=== PATIENT | male | born 1965 | race Caucasian/White ===

== ENCOUNTER 2022-11-30 05:34 | Outpatient (CLI) | payer OTHER ==
[~2022-11-30] VITALS: Ht 177.8 cm; Wt 84.1 kg
[2022-12-01] MEDS ORDERED: ASPI-999 PO (12:37)
[2022-12-01] MEDS ORDERED: METF-479 PO (12:38)
[2022-12-01] MEDS ORDERED: CARI1.5C PO (12:38)
[2022-12-01] MEDS ORDERED: GABA-486 PO (12:38)
[2022-12-01] MEDS ORDERED: OMEP10CA5 PO (12:38)
[2022-12-01] MEDS ORDERED: SEMA1PEN3 SQ (12:38)
== END 2022-12-01 12:44 | disposition home or self-care (01) ==
LOC: PREOP 05:34
PROVIDERS: ATTEND Podiatrist Foot & Ankle Surgery
DX: Z01.818 Encounter for other preprocedural examination (principal)

== ENCOUNTER 2022-12-07 07:50 | Day surgery (SDC) | payer OTHER ==
[~2022-12-07] VITALS: Ht 177.8 cm; Wt 84.1 kg
[~2022-12-07 07:50] MED LIST: ASPI-999 PO; CARI1.5C PO; GABA-486 PO; METF-479 PO; OMEP10CA5 PO; SEMA1PEN3 SQ
[2022-12-07] MEDS ORDERED: LACTATED RINGERS 1,000 ML IV PRN ×2 (08:00)
[2022-12-07] MEDS ORDERED: ceFAZolin INJECTION 1,000 MG in NS (IVPB) 50 ML IV ONE (08:00)
[2022-12-07] MEDS ORDERED: BUPIVACAINE 0.25% 30 ML (SENSORCAINE) VIAL ONE (08:03)
[2022-12-07] MEDS ORDERED: LIDOCAINE 1% INJ 20 ML VIAL ONE (08:03)
[2022-12-07 08:05] VITALS: BP 147/74
[2022-12-07] MEDS ORDERED: PROPOFOL INJECTION 50 ML IV ONE (08:56)
--- NOTE | 2022-12-07 09:20 | Progress Note-Pre Operative ---
Pre-Operative Progress Note Date of Available H&P: Dec 07, 2022 Date H&P Reviewed: Dec 07, 2022 Time H&P Reviewed: 09:10 Pre-Operative Diagnosis: Osteomyelitis, left 2nd toe RUTHY HUNT DPM Dec 07, 2022 09:20
[2022-12-07] MEDS ORDERED: LIDOCAINE 1% INJ 20 ML VIAL INJ ONE (09:39)
[2022-12-07] MEDS ORDERED: BUPIVACAINE 0.25% 30 ML (SENSORCAINE) VIAL INJ ONE (09:40)
[2022-12-07 10:03] VITALS: BP 148/79
--- NOTE | 2022-12-07 10:09 | Progress Note-Post Operative ---
Post-Operative Progess Note Surgeon (s)/Pin Sticker (s) Surgeon RUTHY HUNT DPM Pin Sticker: none Pre-Operative Diagnosis Osteomyelitis, left 2nd toe Post-Operative Diagnosis same Procedure & Operative Findings Date of Procedure 12/07/22 Procedure Performed/Findings Amputation of left 2nd toe Anesthesia Type MAC Estimated Blood Loss Estimated blood loss (mL): Minimal Specimens/Packing Specimens Removed Left 2nd toe RUTHY HUNT DPM Dec 07, 2022 10:09
[2022-12-07 10:10] VITALS: BP 166/78
[2022-12-07] MEDS ORDERED: ACHD5005 PO (10:11)
[2022-12-07] MEDS ORDERED: CEPH500C PO (10:11)
[2022-12-07] MEDS ORDERED: HYDROcodone/APAP 5 MG/325 MG (LORTAB) TAB PO PRN (10:15)
[2022-12-07] MEDS ORDERED: LACTATED RINGERS 1,000 ML IV SCH (10:15)
[2022-12-07 10:20] VITALS: BP 162/81
[2022-12-07 10:30] VITALS: BP_SYST 158; BP_SYST 166; BP_DIAS 85; BP_DIAS 97
[2022-12-07] MEDS ORDERED: fentaNYL INJ 100 MCG/2 ML AMP IVP ONE (10:30)
[2022-12-07] MEDS ORDERED: morphine INJ 10 MG/ML 1ML (SYR OR VIAL) IVP ONE (10:30)
[2022-12-07] MEDS ORDERED: ONDANSETRON 4 MG/2 ML (SDV) Z0FRAN IVP PRN (10:30)
--- NOTE | 2022-12-07 10:31 | Anesthesia-General Post-Op ---
MAC Patient Condition Mental Status/LOC: Same as Preop Cardiovascular: Satisfactory Nausea/Vomiting: Absent Respiratory: Satisfactory Pain: Controlled Complications: Absent Post Op Complications Complications None Follow Up Care/Instructions Patient Instructions None needed. Anesthesiology Discharge Order Discharge Order Patient is doing well, no complaints, stable vital signs, no apparent adverse anesthesia problems. No complications reported per nursing. ERMELINDA SANCHEZ CRNA Dec 07, 2022 10:31
[2022-12-07 11:00] VITALS: BP 170/85
--- NOTE | 2022-12-07 16:52 | Diagnostic Imaging Report ---
INDICATION: Postoperative evaluation. COMPARISON: None available. TECHNIQUE: Two radiographs of the left foot dated 12/07/2022. FINDINGS: Amputation of the second toe at the level of the base of the proximal phalanx is noted. Moderate hallux valgus metatarsus primus varus with bunion formation with moderate degenerative changes of the first MTP joint. No acute fracture or dislocation. No destructive osseous process. Small posterior and plantar calcaneal enthesophytes. No suspicious radiopaque foreign body. IMPRESSION: Postsurgical changes with demonstration of an amputation of the second toe at the level of the base of the second digit proximal phalanx. Moderate hallux valgus metatarsus primus varus with bunion formation and degenerative changes. Dictated by: Dictated on workstation # [id number]
--- NOTE | 2022-12-07 20:44 | OPERATIVE REPORT ---
DATE OF SERVICE: 12/07/2022 SURGEON: Florence Hunt DPM PREOPERATIVE DIAGNOSIS: Osteomyelitis, left second toe. POSTOPERATIVE DIAGNOSIS: Osteomyelitis, left second toe. PROCEDURE: Amputation of left second toe. WOUND CLASS: Contaminated. ANESTHESIA: Monitored anesthesia care. HEMOSTASIS: Pneumatic ankle tourniquet at 250 mmHg. INDICATIONS: This is a 57-year-old male presents with a chronic infection of the left second toe. MRI confirmed osteomyelitis. The patient is agreeable to surgical intervention after risks and complications were discussed at length. No guarantees were extended to the patient and he is willing to proceed. DESCRIPTION OF PROCEDURE: The patient was brought back to the operating table and placed in secure supine position. Appropriate timeout was performed. Local anesthetic was performed utilizing 10 mL of 1:1 mixture of 1% Xylocaine and 0.5% Marcaine injected in a local infusion to the left second metatarsal head and ray area. The left foot was then prepped and draped in normal sterile manner. The left foot was then elevated allowed to exsanguinate after which the tourniquet was inflated to 250 mmHg. Attention was then directed to the left second toe where 2 incisions were made overlying the proximal phalanx area in a racket-type incision. The handle of the "racquet" was on the dorsal aspect extending plantarly circumscribing the diaphysis of the proximal phalanx. Incision was deepened down to bone. Utilizing a power sagittal saw, osteotomy performed proximal to the full-thickness ulceration, lateral aspect of the proximal interphalangeal joint of the left second toe. The toe was sent for specimen, but prior to being sent a small portion of bone of the head of the proximal phalanx was sent for culture and sensitivity. Attention was then directed to the remaining proximal phalanx of the left second toe where a second osteotomy was performed resecting a section of bone approximately little less than 1 cm in length. This was sent for pathology to confirm this portion of the proximal phalanx was clear of signs of osteomyelitis. The remaining bone was of normal integrity, color, overall appearance. There is no purulence to the remaining wound. No proximal streaking noted. The wound to the left second toe amputation site was power irrigated at this time with 1 liter of normal saline. After this power irrigation, a swab culture was taken of the wound prior to closure. Closure to the wound was performed with a simple interrupted type stitch utilizing 4-0 Prolene. Excellent skin coaptation was appreciated without any significant tension. The tourniquet was released, noting appropriate capillary refill time to all the remaining digits of the left. Postoperative injection consisted of 6 mL of 0.5% Marcaine injected in local infusion to the surgical site. Postoperative dressing consisted of Betadine-soaked Adaptic, sterile 4 x 4's, sterile Kerlix all secured with a Coban wrap. The patient tolerated the anesthesia and procedure well and was transported from the operating room to the recovery area with vital signs stable and vascular status intact to all remaining digits of the left foot. We will see the patient back in the office in approximately 1 week period of time or sooner if necessary. Job ID: [id number] DocumentID: [id number] Dictated Date: 12/07/2022 10:21:53 Legal Executive Assistant Date: 12/07/2022 20:42:00 Dictated By: FLORENCE HUNT DPM
== END 2022-12-07 11:00 | disposition home or self-care (01) ==
LOC: SDC 07:50
PROVIDERS: ATTEND Podiatrist Foot & Ankle Surgery
DX: E11.69 Type 2 diabetes mellitus with other specified complication (principal); M86.8X7 Other osteomyelitis, ankle and foot; E11.621 Type 2 diabetes mellitus with foot ulcer; L97.529 Non-pressure chronic ulcer of other part of left foot with unspecified severity; E11.40 Type 2 diabetes mellitus with diabetic neuropathy, unspecified; F17.210 Nicotine dependence, cigarettes, uncomplicated; F32.9 Major depressive disorder, single episode, unspecified; Z79.84 Long term (current) use of oral hypoglycemic drugs; Z79.899 Other long term (current) drug therapy; Z79.85 Long-term (current) use of injectable non-insulin antidiabetic drugs
CPT/HCPCS: 73620; 87070; 87075; 87077; 87081; 87205

== ENCOUNTER 2023-05-31 05:28 | Outpatient (CLI) | payer OTHER ==
[~2023-05-31] VITALS: Ht 177.8 cm; Wt 80.5 kg
[~2023-05-31 05:28] MED LIST changes: +ACHD5005 PO; +CEPH500C PO
== END 2023-05-31 14:38 | disposition home or self-care (01) ==
LOC: PREOP 05:28
PROVIDERS: ATTEND Podiatrist Foot & Ankle Surgery
DX: Z01.818 Encounter for other preprocedural examination (principal)

== ENCOUNTER 2023-06-07 06:19 | Day surgery (SDC) | payer OTHER ==
[2023-06-07] VITALS (9 sets, daily range): BP systolic 110–146; BP diastolic 62–73
[~2023-06-07] VITALS: Ht 177 cm; Wt 80.5 kg
[2023-06-07] MEDS ORDERED: ceFAZolin INJECTION 1,000 MG in NS (IVPB) 50 ML 50 ML IV ONE (06:30)
[2023-06-07] MEDS ORDERED: LACTATED RINGERS 1,000 ML IV PRN (06:30)
[2023-06-07] MEDS ORDERED: BUPIVACAINE 0.5% 30 ML VIAL ONE (07:27)
[2023-06-07] MEDS ORDERED: LIDOCAINE 1% w/EPI 1:100,000 20 ML VIAL ONE (07:27)
[2023-06-07] MEDS ORDERED: fentaNYL INJECTION 100 MCG/2 ML VIAL ONE (07:29)
--- NOTE | 2023-06-07 07:48 | Progress Note-Pre Operative ---
Pre-Operative Progress Note Date of Available H&P: Jun 07, 2023 Date H&P Reviewed: Jun 07, 2023 Time H&P Reviewed: 07:39 Pre-Operative Diagnosis: Hallux Valgus left RUTHY HUNT DPErickson Jun 07, 2023 07:48
[2023-06-07] MEDS ORDERED: ONDANSETRON 4 MG/2 ML (SDV) Z0FRAN ONE ×2 (08:44→09:21)
[2023-06-07] MEDS ORDERED: LIDOCAINE PF 2% 5 ML VIAL ONE (08:44)
[2023-06-07] MEDS ORDERED: proPOfol 200 MG/20 ML (DIPRIVAN) VIAL IV ONE (08:44)
[2023-06-07] MEDS ORDERED: dexAMETHasone INJ 10 MG/ML 1 ML VIAL ONE (09:01)
--- NOTE | 2023-06-07 09:17 | Progress Note-Post Operative ---
Post-Operative Progess Note Surgeon (s)/Head Of Talent Management (s) Surgeon RUTHY HUNT DPM Head Of Talent Management: none Pre-Operative Diagnosis Hallux Valgus left Post-Operative Diagnosis same Procedure & Operative Findings Date of Procedure 06/07/23 Procedure Performed/Findings [place]-Rick bunionectomy left foot Anesthesia Type General Estimated Blood Loss Estimated blood loss (mL): Minimal Specimens/Packing Specimens Removed none RUTHY UHNT DPM Jun 07, 2023 09:17
[2023-06-07] MEDS ORDERED: ACHD5005 PO (09:20)
[2023-06-07] MEDS ORDERED: CEPH500C PO (09:20)
[2023-06-07] MEDS ORDERED: SEVOFLURANE (ULTANE) 15 ML INHAL SOLN ONE (09:21)
[2023-06-07] MEDS ORDERED: HYDROcodone/ACETAMINOPHEN 5 MG/325 MG TABLET PO PRN (09:30)
[2023-06-07] MEDS ORDERED: LACTATED RINGERS 1,000 ML IV SCH (09:30)
[2023-06-07] MEDS ORDERED: LIDOCAINE 1% w/EPI 1:100,000 20 ML VIAL INJ ONE (10:18)
[2023-06-07] MEDS ORDERED: BUPIVACAINE 0.5% 30 ML VIAL INJ ONE (10:20)
[2023-06-07] MEDS ORDERED: dexAMETHasone INJ 10 MG/ML 1 ML VIAL INJ ONE (10:21)
--- NOTE | 2023-06-07 11:47 | Physical Therapy Ortho Eval ---
PT Orthopedic Evaluation Type of Surgery Hallux Valgus left Prior Level of Function Current Living Status: Spouse Locomotion (Upon Admit): Independent Subjective Entry Into Home: Stairs Without Railing Steps Into Home: 1 Motor Control Motor Control: Motor Control WNL ROM ROM: WFL, except focal deficit Strength Strength: WFL Transfer SCALE: Activities may be completed with or without assistive devices. 0-Yzhdrevwly-cbgockw completes the activity by him/herself with no assistance from a helper. 5-Set-up or Clean-up Assistance-helper sets up or cleans up; patient completes activity. [place] assists only prior to or following the activity. 4-Supervision or Touching Assistance-helper provides verbal cues and/or touching/steadying and/or contact guard assistance as patient completes activity. Assistance may be provided throughout the activity or intermittently. 3-Partial/Moderate Assistance-helper does LESS THAN HALF the effort. Cleves lifts, holds or supports trunk or limbs, but provides less than half the effort. 2-Substantial/Maximal Assistance-helper does MORE THAN HALF the effort. Cleves lifts or holds trunk or limbs and provides more than half the effort. 3-Cfpsnuorp-bempkl does ALL the effort. Patient does none of the effort to complete the activity. Or, the assistance of 2 or more helpers is required for the patient to complete the activity. If activity was not attempted, code reason: 7-Patient Refused. 9-Not Applicable-not attempted and the patient did not perform the activity before the current illness, exacerbation or injury. 10-Not Attempted due to Environmental Limitations-(lack of equipment, weather restraints, etc.). 88-Not Attempted due to Medical Conditions or Safety Concerns. Transfers (B, C, W/C) (QC): 3 Gait Gait Assistive Device: Crutches Right Lower Extremity: Right Weight Bearing Status RLE: Full Weight Bearing Left Lower Extremity: Left Weight Bearing Status LLE: Non Weight Bearing Other Weight Bearing Inst.: Heel contact for balance and transfers Gait (QC): 3 Distance: 150' Summary/Comments very unsteady and unsafe Treatment Rendered Treatment: Gait Train, Step Train (verbal due to patient is not safe to peform) Assessment/Goals Goal Time Frame: 1 Visit Safe Ambulation: No Time Time In: 1030 Time Out: 1042 Total Billed Treatment Time: 12 Billed [facility] DAYA [facility] Jun 07, 2023 11:47
--- NOTE | 2023-06-07 12:02 | Anesthesia-General Post-Op ---
General Patient Condition Mental Status/LOC: Same as Preop Cardiovascular: Satisfactory Nausea/Vomiting: Absent Respiratory: Satisfactory Pain: Controlled Complications: Absent Post Op Complications Complications None Follow Up Care/Instructions Patient Instructions None needed. Anesthesia/Patient Condition Patient Condition Patient is doing well, no complaints, stable vital signs, no apparent adverse anesthesia problems. No complications reported per nursing. ERMELINDA SANCHEZ CRNA Jun 07, 2023 12:02
--- NOTE | 2023-06-07 13:24 | Diagnostic Imaging Report ---
INDICATION: Postoperative evaluation COMPARISON: 12/07/2022 TECHNIQUE: 2 radiographs of the left foot dated 06/07/2023 FINDINGS: Recent osteotomy and bunionectomy involving the 1st metatarsal and 1st MTP joint is noted with soft tissue gas present. No evidence of immediate hardware complication. Moderate degenerative changes of the 1st MTP joint are again identified. Amputation of the 2nd toe at the level of the base of the proximal phalanx is again seen and stable. No new fracture or dislocation. No destructive osseous process. No suspicious radiopaque foreign body. IMPRESSION: Recent osteotomy and bunionectomy involving the 1st ray as described above without immediate hardware complication or suspicious radiopaque foreign body. Stable amputation of the 2nd toe. Additional findings as above. Dictated by: Dictated on workstation # [id number]
--- NOTE | 2023-06-07 19:07 | OPERATIVE REPORT ---
DATE OF SERVICE: 06/07/2023 SURGEON: Ruthy Hunt DPM. PREOPERATIVE DIAGNOSIS: Hallux abductovalgus metatarsal primus varus, left. POSTOPERATIVE DIAGNOSIS: Hallux abductovalgus metatarsal primus varus, left. PROCEDURE PERFORMED: Modified [place]-Rick bunionectomy, left foot. WOUND CLASS: Clean. ANESTHESIA: General. HEMOSTASIS: Pneumatic thigh tourniquet at 300 mmHg. INDICATIONS: This 57-year-old male presents complaining of a painful bunion to the left lower extremity. The patient is agreeable to surgical intervention after risks and complications were discussed at length. No guarantees were extended to the patient and he is willing to proceed. DESCRIPTION OF PROCEDURE: The patient was brought back to the operating table and placed in secure supine position. General anesthetic was then induced. Appropriate timeout was performed. Preprocedure anesthesia was administered utilizing 10 mL of 1:1 mixture of 1% Xylocaine and 0.5% Marcaine injected in a [place] block. The left foot was then prepped and draped in normal sterile manner. The left foot was then elevated and allowed to exsanguinate, after which the tourniquet was inflated to 300 mmHg. Attention was then directed to the dorsal aspect of the left first metatarsophalangeal joint where a 7 cm longitudinal linear incision was created. The incision was deepened in the same plane with great care to identify and retract all vital neurovascular structures. Only necessary blood vessels were cauterized as encountered. The incision was deepened down to the deep tissue where a longitudinal capsulotomy was performed. The capsular tissue was reflected medially and laterally, exposing the hypertrophic medial eminence to the first metatarsal head, which was resected utilizing a power sagittal saw. Next, blunt dissection was carried out into the first intermetatarsal space where a lateral capsulorrhaphy was performed as well as release of the conjoined tendon of the adductor hallucis. The fibular sesamoidal ligament was also released. The hallux was then forcibly adducted, releasing any additional adhesions. Attention was redirected to the medial aspect of the left first metatarsal where a Chevron type osteotomy was performed at the surgical neck with the osteotomy performed, the capital fragment was translocated laterally and fixated in its corrected position utilizing a 0.062 threaded K-wire driven from dorsal proximal to plantar distal across the osteotomy with great care not to penetrate the articular cartilage. Excellent bony apposition and fixation was appreciated at this time. Attention was then directed to the proximal phalanx of the left hallux where subperiosteal dissection was carried out. A wedge of bone was resected with a power sagittal saw. This gap was closed after the wedge of bone was resected. This realigned the hallux into more rectus position. Two commercial helicopter pilot holes were created at the dorsal medial aspect of the osteotomy, after which a 28-gauge monofilament wire was passed through this commercial helicopter pilot hole, securing the osteotomy in a closed position. Excellent bony apposition and fixation was appreciated at this time. The wound was flushed with copious amounts of normal saline throughout the procedure. Attention was then directed to the first metatarsal head where full-thickness degeneration was noted to the anterior central aspect of the head of the first metatarsal. This area was sharply debrided of loose tissue as well as some fenestration performed with the 1 mm drill. The area was flushed with copious amounts of normal saline. Closure was then performed in layers. Deep closure was performed with 3-0 Vicryl, superficial with 4-0 Vicryl, skin closed with 4-0 Prolene in a horizontal mattress type stitch. Postoperative injection consisted of 13 mL of 0.5% Marcaine injected in a local infusion to the surgical site. A 10 mg of dexamethasone was injected into the first intermetatarsal space and into the first metatarsophalangeal joint area. Postoperative dressing consisted of Betadine-soaked Adaptic, sterile 4 x 4's, sterile Kerlix, all secured with a Coban wrap. The patient tolerated the anesthesia and procedure well and was transported from the operating room to the recovery room with vital signs stable and vascular status intact to all remaining digits of the left foot. The patient is to be nonweightbearing on the left forefoot. He is to follow up in my office in 10 days period of time or sooner if necessary. Job ID: [id number] DocumentID: [id number] Dictated Date: 06/07/2023 09:30:12 Audit Reviewer Date: 06/07/2023 19:05:00 Dictated By: RUTHY HUNT DPM
== END 2023-06-07 10:45 | disposition home or self-care (01) ==
LOC: SDC 06:19
PROVIDERS: ATTEND Podiatrist Foot & Ankle Surgery
DX: M20.12 Hallux valgus (acquired), left foot (principal); M21.612 Bunion of left foot; J44.9 Chronic obstructive pulmonary disease, unspecified; R91.8 Other nonspecific abnormal finding of lung field; E11.65 Type 2 diabetes mellitus with hyperglycemia; E78.5 Hyperlipidemia, unspecified; E11.3393 Type 2 diabetes mellitus with moderate nonproliferative diabetic retinopathy without macular edema, bilateral; I25.2 Old myocardial infarction; I10 Essential (primary) hypertension; R53.83 Other fatigue; F32.9 Major depressive disorder, single episode, unspecified; F17.210 Nicotine dependence, cigarettes, uncomplicated; F41.9 Anxiety disorder, unspecified; Z79.84 Long term (current) use of oral hypoglycemic drugs; Z79.899 Other long term (current) drug therapy; Z95.5 Presence of coronary angioplasty implant and graft
CPT/HCPCS: 28299; 73620; 82947; 87081; 97162; C1713; C1734